=== PATIENT | male | born 1955 ===

== ENCOUNTER 2020-05-31 15:24 | Outpatient (REF) | payer MEDICARE, MEDICAID, SELFPAY ==
[2020-05-31 16:17] LABS: Anion Gap 11 (12-20); Blood Urea Nitrogen 15 mg/dL (9-16); Calcium 8.8 mg/dL (8.4-10.2); Carbon Dioxide 30 mmol/L (22-29); Chloride 100 mmol/L (96-108); Estimated Glomerular Filt Rate > 60; Glucose Random 134 mg/dL (60-115); Potassium 3.9 mmol/l (3.3-5.1); Sodium 137 mmol/L (135-145)
== END 2020-05-31 15:25 | disposition home or self-care (01) ==
LOC: HO.LAB 15:24
PROVIDERS: PCP Internal Medicine; Visit Provider Hospitalist
DX: M51.36 Other intervertebral disc degeneration, lumbar region (principal)
CPT/HCPCS: 80048

== ENCOUNTER 2020-06-19 09:25 | Outpatient (REF) | payer MEDICARE, MEDICAID, SELFPAY ==
[2020-06-19 10:20] LABS: Hematocrit 40.1 % (42-52); Hemoglobin 12.6 g/dl (14.0-18.0); Mean Corpuscular HGB Conc 31.4 g/dl (31.0-36.0); Mean Corpuscular Hemoglobin 26.8 pg (27.0-33.0); Mean Corpuscular Volume 85.1 fL (80-98); Mean Platelet Volume 11.3 fL (9.4-12.4); Platelet Count 205 X10*3/uL (160-400); Red Blood Count 4.71 X10*6/uL (4.60-5.80); Red Cell Distribution Width 12.9 % (11.0-16.0)
[2020-06-19 10:51] LABS: Cholesterol 238 mg/dL; HDL Cholesterol 48 mg/dL; LDL Cholesterol Calculated 158 mg/dl; Triglycerides 163 mg/dL
[2020-06-19 11:12] LABS: TSH reflex Free T4 3.05 mIU/mL (0.32-4.0)
[2020-06-19 12:41] LABS: Creatinine Urine 112.67 mg/dL; Microalbum/Creatinine Ratio Ur 4.4 ug/mg cr
== END 2020-06-19 09:26 | disposition home or self-care (01) ==
LOC: HO.LAB 09:25
PROVIDERS: PCP Internal Medicine; Visit Provider Hospitalist
DX: I10 Essential (primary) hypertension (principal); E11.9 Type 2 diabetes mellitus without complications
CPT/HCPCS: 36415; 80061; 82043; 84443; 85027

== ENCOUNTER 2022-03-29 12:16 | Outpatient (REF) | payer MEDICARE, MEDICAID, SELFPAY ==
--- NOTE | ~2022-03-29 | XR_ITS ---
EXAMINATION: XR SHOULDER, LEFT CLINICAL INFORMATION: Strain of unspecified muscle, fascia, tendon COMPARISON: None TECHNIQUE: 5 views of the left shoulder. FINDINGS: Moderate to severe glenohumeral joint arthritis, marked joint space loss, osteophytes, sclerosis. Moderate acromioclavicular arthritis. No fracture or dislocation. No abnormal soft tissue calcification. No suspicious findings in the visualized lung. XR/XR shoulder LT min 2V IMPRESSION: Moderate to severe glenohumeral joint arthritis. Moderate acromioclavicular arthritis.
== END 2022-03-29 12:17 | disposition home or self-care (01) ==
LOC: HO.XRAY 12:16
PROVIDERS: PCP Hospitalist; Visit Provider Hospitalist
DX: S46.911A Strain of unspecified muscle, fascia and tendon at shoulder and upper arm level, right arm, initial encounter (principal); S46.912A Strain of unspecified muscle, fascia and tendon at shoulder and upper arm level, left arm, initial encounter; X50.3XXA Overexertion from repetitive movements, initial encounter
CPT/HCPCS: 73030

== ENCOUNTER 2022-04-10 09:59 | Outpatient (REF) | payer MEDICARE, MEDICAID, SELFPAY ==
[2022-04-10 11:32] LABS: Hematocrit 36.3 % (42.0-52.0); Hemoglobin 11.5 g/dl (14.0-18.0); Mean Corpuscular HGB Conc 31.7 g/dl (31.0-36.0); Mean Corpuscular Hemoglobin 27.4 pg (27.0-33.0); Mean Corpuscular Volume 86.6 fL (80.0-98.0); Mean Platelet Volume 12.4 fL (9.4-12.4); Platelet Count 197 X10*3/uL (160-400); Red Blood Count 4.19 X10*6/uL (4.60-5.80); Red Cell Distribution Width 13.5 % (11.0-16.0); White Blood Count 5.2 X10*3/uL (4.8-10.8)
[2022-04-10 12:02] LABS: Prostate Specific Antigen Scr 1.21 ng/mL (<0.05-4.0)
[2022-04-10 12:10] LABS: Alanine Aminotransferase 15 U/L (0-40); Albumin Level 3.7 g/dL (3.5-5.0); Alkaline Phosphatase 64 U/L (39-117); Anion Gap 12 (12-20); Aspartate Amino Transferase 20 U/L (5-37); Bilirubin Total 0.2 mg/dL (0.0-1.0); Blood Urea Nitrogen 26 mg/dL (9-16); Carbon Dioxide 30 mmol/L (22-29); Chloride 106 mmol/L (96-108); Cholesterol 147 mg/dL; Estimated Glomerular Filt Rate > 60; Glucose Fasting 77 mg/dL (60-99); HDL Cholesterol 56 mg/dL; LDL Cholesterol Calculated 78 mg/dl; Potassium 4.5 mmol/L (3.3-5.1); Sodium 143 mmol/L (135-145); Total Protein 6.1 g/dL (6.5-8.0); Triglycerides 69 mg/dL
[2022-04-10 15:27] LABS: Iron 56 mcg/dL (45-160); Percent Iron Saturation 14 % (15-50); Total Iron Binding Capacity 406 mcg/dL (228-428); Unsaturated Iron Binding 350 ug/dL
[2022-04-10 16:02] LABS: Folate 8.8 ng/mL (> or = 4.0); Vitamin B12 377 pg/mL (200-900)
== END 2022-04-10 10:00 | disposition home or self-care (01) ==
LOC: HO.WFDLDS 09:59
PROVIDERS: PCP Hospitalist; Visit Provider Hospitalist
DX: Z00.00 Encounter for general adult medical examination without abnormal findings (principal); Z12.5 Encounter for screening for malignant neoplasm of prostate; R39.198 Other difficulties with micturition; D64.9 Anemia, unspecified
CPT/HCPCS: 36415; 80053; 80061; 82607; 82746; 83540; 84153; 84439; 84443; 85027

== ENCOUNTER 2023-06-06 13:03 | Outpatient (AMB) | payer MEDICARE, MEDICAID, SELFPAY ==
--- NOTE | 2023-06-06 13:07 | A.OFFPC_ITS ---
Vital Signs 06/06/23 13:23 06/06/23 14:53 Height 5 ft 1 in Weight 114 lb BMI 21.5 BP 104/58 L 110/70 Blood Pressure Location Rt brachial Lt brachial Position Sitting Sitting Respiration 12 Pulse 71 Pulse Source Pulse Oximeter Temp 98.9 F Temp Source Oral Pulse Oximetry (%) 98 Oxygen Delivery Method Room Air Intake Visit Reasons: f/u chronic conditions, trans of care Intake Note: Patient is here for a transfer of care from with chronic conditions. Yusra hall's last CPE was on 11/26/21. Patient's last glucose was 113 on 05/17/23 and most recent A1C on file was 6.8 on 10/17/21. Patient is accompanied by his niece and his ACTIVE DIRECTORY ARCHITECT at today's visit. Patient's agapito ce reports patient was found unconscious and was given narcan on site and brought to [facility] ER a few times last month in May. Patient had a tox screen completed at the hospital and no drugs or alcohol were found in his system. Patient's niece is concerned for patient's mental status, sleepiness, and speech changes. Slice Cutting Machine Operator Required: Yes Slice Cutting Machine Operator Name: Tg is here at todays visit. Accompanied by: Family/Other Allergies No Known Allergies [No Known Allergies*] Allergy (Verified 06/06/23 13:58) Medication List - Last Reconciled 06/06/23 by Valdemar Jerome CNP aspirin 81 mg PO DAILY baclofen 10 mg PO TID cholecalciferol (vitamin D3) (Vitamin D3) 25 mcg PO DAILY clonazepam (Klonopin) 0.5 mg PO TID PRN fenofibrate 160 mg PO DAILY ferrous sulfate 325 mg PO DAILY gabapentin 300 mg PO TID ibuprofen 800 mg PO TID metformin 500 mg PO DAILY miscellaneous medical supply as directed daily; one lift chair to be use as directed; 12 months omeprazole 20 mg PO DAILY quetiapine 200 mg PO BEDTIME quetiapine ER 400 mg PO BEDTIME sertraline (Zoloft) 100 mg PO BID Tobacco use date assessed: 06/06/23 Fall risk assessment: No Falls in past year Last assessed Fall Risk: 06/06/23 Dental Screening Dental Screen Date: 06/06/23 Did you have a dental visit in the last 12 months?: Yes Did you have a dental problem in the last 6 months where you did not have access to dental care?: No Was dental information given to patient?: Patient has dentist HPI HPI Comments History of Present Illness Details 67-year-old male, accompanied by his agapito ce and ACTIVE DIRECTORY ARCHITECT, presents for transfer of care. His former PCP was JEREMY who is no longer with the practice. His last office visit was March 2022. He has past medical history significant for hypertension, type 2 diabetes, hype rlipidemia, GERD, DJD, iron deficiency anemia, schizophrenia, anxiety, and depression. His niece notes that his health plan no longer cover ACTIVE DIRECTORY ARCHITECT services and his ACTIVE DIRECTORY ARCHITECT has recently been provding services intermittently. His has been leaving with his niece the past 4 days for close monitoring. He has been taking his medications as prescribed in the past 4 days per his niece. According to his niece, the patient was found unconscious and was given narcan on site and brought to [facility] ED on 05/17/2023. On 05/31/23, he developed slurred speech, became unconscious and was brought to [facility] ED again. He was admitted x2 days both times he went to the ED. Patient had a tox screen completed at the hospital and no drugs or alcohol were found in his system per his niece. Patient's niece is concerned for patient's mental status, sleepiness, and speech changes. Review of hospital documentation revealed normal labs, EKG, chest x-ray, and head CT. He is followed by Dr. Sharma, psychiatrist, at [facility]. His last visit was possibly 2 months ago per his ACTIVE DIRECTORY ARCHITECT. He is also followed by a therapist from [facility] monthly and his last telehealth visit was a month ago per his niece. Her niece notes that the patient has been recently experiencing slurred speech, drowsiness, and dizziness. He has also been saying things that doesn't make sense. His symptoms have been ongoing for the past 4 days. His symptoms completely resolved after his two recent hospitalization. [facility] Surgical History No pertinent past surgical history Family History Father No problems noted. Mother Pancreatic cancer Maternal Uncle Pancreatic cancer Other Mental health disorder Social History (Reviewed 06/06/23 @ 13:42 by Kathia Fontana [facility] COUNTY[facility] Housing: Apartment Alcohol intake: never Patient Tobacco Use Status: Never used Tobacco e-Cigarette/Vaping Use: Never Used Second Hand Smoke Exposure: No service: No Current occupational status: disabled Current occupational exposures/hazards: No Cognitive needs: Yes Hearing needs: No Vision needs: Yes (Glasses) Questionnaire PHQ-9 Over the last 2 weeks, how often have you been bothered by any of the following problems? 1. Little interest or pleasure in doing things: nearly every day 2. Feeling down, depressed, or hopeless: nearly every day 3. Trouble falling or staying asleep, or sleeping too much: nearly every day 4. Feeling tired or having little energy: nearly every day 5. Poor appetite or overeating: more than half the days 6. Feeling bad about yourself - or that you are a failure or have let yourself or your family down: nearly every day 7. Trouble concentrating on things, such as reading the newspaper or watching television: nearly every day 8. Moving or speaking so slowly that other people could have noticed. Or the opposite - being so fidgety or restless that you have been moving around a lot more than usual: nearly every day 9. Thoughts that you would be better off or of hurting yourself in some way: not at all Total score: 23 Depression Screening Interpretation: Positive Depression Screening Follow-up: Existing condition and In treatment Depression Screening Done: Yes 54940 - PHQ-9 Billing: Yes Source: Developed by Drs. Sebas Salguero, Claudia Gamboa, Luis Ash and colleagues, with an educational marcello from [employer]. Thrive Questionnaire Date Thrive assessed: 06/06/23 I am a: Patient What is your living situation today?: I have a steady place to live Within the past 12 months, did the food you bought not last and you didn't have the money to get more?: Sometimes True Within the past 12 months, did you worry whether your food would run out before you got money to buy more?: Sometimes True Do you have trouble paying for medicines?: No Do you have trouble getting transportation to medical appointments?: No Do you have trouble paying your heating and electricity bill?: No Do you have trouble taking care of your child, family member or friend?: Yes Do you have trouble with day-to-day activities such as bathing, preparing meals, shopping, managing finances, etc.?: Yes Are you currently unemployed and looking for a job?: No Are you interested in more education?: No Please select the resources that you would like help with: None Currently or been in a relationship where the following occur: no concerns reported AUDIT C Alcohol Use Questionnaire (AUDIT-C) 1. How often do you have a drink containing alcohol?: Never 3. How often do you have six or more drinks on one occasion?: Never Total Score: 0 RAMON-7 AMB Questionnaire RAMON-7 Date RAMON - 7 assessed: 06/06/23 Feeling nervous, anxious, or on edge: 3 = Nearly every day Not being able to stop or control worryin = Nearly every day Worrying too much about different things: 3 = Nearly every day Trouble relaxin = Nearly every day Being so restless that it is hard to sit still: 1 = Several days Becoming easily annoyed or irritable: 0 = Not at all Feeling afraid as if something awful might happen: 3 = Nearly every day Total RAMON-7 score (0-4 normal; 5-9 mild; 10-14 moderate; 15-21 severe): 16 Source: Developed by Drs. Sebas Salguero, Claudia Gamboa, Luis Ash and colleagues, with an educational marcello from [employer]. RAMON-7 Assessment Billing ARMON-7 Assessment Tool: RAMON-7 Assessment 68030 Review of Systems Const Details: Const Denies chills, Denies fatigue, Denies fever(s), Denies headache(s) and Denies weakness ENT Reports dizziness and Denies headache(s) Card Denies chest pain, Denies lightheadedness, Denies dyspnea and Denies other (Palpitations) Resp Denies cough, Denies dyspnea, Denies wheezing and Denies other (shortness of breath) GI Denies abdominal pain, Denies melena, Denies hematochezia, Denies change in bowel habits, Denies dyspepsia and Denies nausea Denies hematuria and Denies dysuria Musc Denies abnormal gait, Denies myalgias, Denies arthralgias, Denies numbness and Denies tingling Skin/Breast Denies rash, Denies unusual bruising and Denies wounds Neuro Denies abnormal gait, Reports dizziness, Denies headache(s), Denies memory loss, Denies numbness, Denies Sensory deficit (Neuro), Denies tingling and Denies weakness Psych Reports anxiety, Reports depression, Denies memory loss Endo Denies cold intolerance, Denies fatigue, Denies heat intolerance, Denies polydipsia and Denies polyuria Aller/Immun Denies wheezing Physical exam (Primary Care) Vital Signs: Last Vital Signs Temp 98.9 F 06/06/23 13:23 Pulse 71 06/06/23 13:23 Resp 12 06/06/23 13:23 BP 110/70 06/06/23 14:53 Pulse Ox 98 06/06/23 13:23 Oxygen Delivery Method Room Air 06/06/23 13:23 BMI result Body Mass Index 21.5 Tobacco/Smoking Status: Tobacco use Status Tobacco use date assessed 06/06/23 06/06/23 13:42 Patient Tobacco Use Status Never used Tobacco 06/06/23 13:07 e-Cigarette/Vaping Use Never Used 06/06/23 13:07 PHQ-9: PHQ-9 Score PHQ-9: Total score 23 06/06/23 14:08 Depression Screening Interpretation: Positive Depression Screening Follow-up: Existing condition and In treatment Thrive Assessment: Date of Thrive Assessment Date Thrive assessed 06/06/23 06/06/23 14:00 Currently or been in a relationship where the following occur: no concerns reported Const Other: General: no acute distress and well developed Nutritional Appearance: well nourished Orientation/consciousness: patient oriented x3 HENMT Head: Yes normocephalic and Yes atraumatic Oropharynx is significantly dry Eyes General: appearance normal, both eyes and all related structures Pupils: Equal, round and reactive pupils present EOM: EOMs intact bilaterally Resp Effort & Inspection: normal respiratory effort Auscultation: clear to auscultation bilaterally Cardio Rate: regular rate Rhythm: regular rhythm Heart sounds: S1 normal heart sound present, S2 normal heart sound present, no gallops, no murmurs and no rubs GI Palpation (GI): No Abdominal aortic bruit present, Soft to palpation, nontender, No hepatosplenomegaly present and No Rebound tenderness present Auscultation: normal bowel sounds General: Yes no CVA tenderness Back/Spine/Pelvis Back: no CVA tenderness Cervical Spine: cervical ROM normal and No Cervical spine tenderness Thoracic/Lumbar Spine: thoraco-lumbar ROM normal, No pain with thoraco-lumbar ROM, No thoracic spinal tenderness and No lumbar spinal tenderness Extrem General: Yes normal to inspection, No edema and No calf tenderness Skin General: warm and dry. Normal skin color. Normal skin turgor Neuro General: patient oriented x3, gait normal and no focal neuro deficit Cranial nerves: Yes Equal, round and reactive pupils present Cognition (Neuro): normal cognition Gait exam (Neuro): Normal gait present Sensory Exam: No Sensory deficit (Neuro) Psych Appearance: grossly normal Affect: normal affect Attitude: cooperative Thought process: Normal thought process present Results AMB Hemoglobin A1c AMB Hemoglobin A1c 6.1 % Last Edit by Kathia Fontana CMA on 06/06/23 14:03 Results Reviewed Results Reviewed: Laboratory Last Values Hgb A1c (Clinic) 6.1 % (4.0-6.0) H 06/06/23 14:01 Assessment and Plan Assessment & Plan (1) Diabetes: Code(s): E11.9 - Type 2 diabetes mellitus without complications Qualifiers: Diabetes mellitus complication status: without complication Diabetes mellitus senior care insulin use: without senior care use Diabetes mellitus type: type 2 Qualified Code(s): E11.9 - Type 2 diabetes mellitus without complications Plan: A1c today 6.1%, within goal of less than 7.0% Continue to take metformin 500 mg daily ADA diet and routine exercise encouraged Will recheck A1c in 3 months Verbalized understanding and agreed with treatment plan. (2) Hypertension: Code(s): I10 - Essential (primary) hypertension Qualifiers: Hypertension type: primary hypertension Qualified Code(s): I10 - Essential (primary) hypertension Plan: Blood pressure is 110/70, within goal of less than 130/80 Continue with current treatment regimen Low-sodium diet encouraged Follow-up in 1 month or return sooner with symptoms or concerns Verbalized understanding and agreed with treatment plan. (3) GERD without esophagitis: Code(s): K21.9 - Gastro-esophageal reflux disease without esophagitis Plan: Stable Continue with current treatment (4) Anxiety and depression: Code(s): F41.9 - Anxiety disorder, unspecified; F32.9 - Major depressive disorder, single episode, unspecified Plan: PHQ-9 and RAMON-7 scores revealed severe depression and anxiety Continue current treatment regimen Routine exercise encouraged Call and schedule an appointment with therapist and psychiatrist Return with worsening or new symptoms Verbalized understanding and agreed with treatment plan. (5) Schizophrenia: Code(s): F20.9 - Schizophrenia, unspecified Plan: As above (6) Slurred speech: Code(s): R47.81 - Slurred speech Plan: Reports slurred speech, drowsiness, and dizziness for the past 4 days Normal physical exam. No focal neuro deficit. However, he dozed off a few times in the exam room when being assessed He is on multiple psychotropic and pain medications with common adverse reactions of drowsiness and dizziness Likely experiencing adverse reactions of current treatment regimen. Dizziness may also be attributed to dehydration. Oropharynx is significantly dry Will discontinue baclofen and gabapentin which he is on for chronic lumbar back pain. Will order Celebrex for pain. Take as prescribed. Warm/cold compresses encouraged Adequate hydration encouraged Advised to call his psychiatrist and schedule an appointment for further evaluation and psychotropic medication management Follow-up in 1 month or return sooner with worsening or new symptoms. May refer to Neurology Verbalized understanding and agreed with treatment plan. (7) Drowsiness: Code(s): R40.0 - Somnolence Plan: As above (8) Dizziness: Code(s): R42 - Dizziness and giddiness Plan: As above Orders: Orders AMB Hemoglobin A1c 06/06/23 Z13.9 - Encounter for screening, unspecified Medications: New celecoxib (Celebrex) 200 mg PO DAILY 30 days 30 caps 3RF Discontinued ibuprofen Discontinued Reason: Doctor's Order 800 mg PO TID 270 tabs 2RF M51.36 - Other intervertebral disc degeneration, lumbar region baclofen Discontinued Reason: Doctor's Order 10 mg PO TID 90 tabs 1RF S46.911A - Strain of unspecified muscle, fascia and tendon at shoulder and upper arm level, right arm, initial encounter, S46.912A - Strain of unspecified muscle, fascia and tendon at shoulder and upper arm level, left arm, initial encounter, X50.3XXA - Overexertion from repetitive movements, initial encounter gabapentin Discontinued Reason: Doctor's Order 300 mg PO TID 90 caps 1RF M51.36 - Other intervertebral disc degeneration, lumbar region Coding Level of Care Code Est Pt Level 5 (86121) Diagnoses Type 2 diabetes mellitus without complication, without long-term current use of insulin E11.9 Diabetes mellitus complication status: without complication Diabetes mellitus senior care insulin use: without senior care use Diabetes mellitus type: type 2 Primary hypertension I10 Hypertension type: primary hypertension GERD without esophagitis K21.9 Anxiety and depression F41.9; F32.9 Schizophrenia F20.9 Slurred speech R47.81 Drowsiness R40.0 Dizziness R42 Additional Codes RAMON-7 Assessment Billing - RAMON-7 Assessment Tool: RAMON-7 Assessment 99354 ([id number])
[2023-06-06 13:23] VITALS: BP 104/58; PULSE 71; RESP 12; TEMP 37.2; O2SAT 98; BMI 21.5
[2023-06-06 14:53] VITALS: BP 110/70
== END 2023-06-06 15:13 | disposition home or self-care (01) ==
PROVIDERS: PCP Nurse Practitioner Family; Visit Provider Nurse Practitioner Family
DX: R47.81 Slurred speech (principal); E11.9 Type 2 diabetes mellitus without complications; F20.9 Schizophrenia, unspecified; I10 Essential (primary) hypertension; K21.9 Gastro-esophageal reflux disease without esophagitis; F41.9 Anxiety disorder, unspecified; F32.9 Major depressive disorder, single episode, unspecified
CPT/HCPCS: 83036; 96127; 99215

== ENCOUNTER 2024-03-02 10:38 | Outpatient (AMB) | payer MEDICARE, MEDICAID, SELFPAY ==
--- NOTE | 2024-03-02 10:41 | MHC.PC.OV ---
Vital Signs 03/02/24 10:48 Height 5 ft 1 in Weight 131 lb 6 oz BMI 24.8 BP 120/54 L Blood Pressure Location Lt brachial Position Sitting Respiration 16 Pulse 64 Pulse Source Pulse Oximeter Temp 97.8 F Temp Source Oral Pulse Oximetry (%) 98 Oxygen Delivery Method Room Air Intake Visit Reasons: annual pe Intake Note: patient here for annual CPE. Manager Production Required: No Accompanied by: Nephew or Niece Allergies No Known Allergies [No Known Allergies*] Allergy (Verified 03/02/24 11:04) Medication List - Last Reconciled 03/02/24 by Valdemar Jerome CNP aspirin 81 mg PO DAILY atorvastatin 10 mg PO BEDTIME 90 days celecoxib (Celebrex) 200 mg PO DAILY 30 days cholecalciferol (vitamin D3) (Vitamin D3) 25 mcg PO DAILY clonazepam (Klonopin) 0.5 mg PO TID PRN fenofibrate 160 mg PO DAILY ferrous sulfate 325 mg PO DAILY metformin 500 mg PO DAILY miscellaneous medical supply as directed daily; one lift chair to be use as directed; 12 months omeprazole 20 mg PO DAILY quetiapine 200 mg PO BEDTIME quetiapine ER 400 mg PO BEDTIME sertraline (Zoloft) 100 mg PO BID Tobacco use date assessed: 03/02/24 Fall risk assessment: No Falls in past year Last assessed Fall Risk: 03/02/24 Dental Screening Dental Screen Date: 03/02/24 Did you have a dental visit in the last 12 months?: No Did you have a dental problem in the last 6 months where you did not have access to dental care?: No Was dental information given to patient?: Yes HPI HPI Comments History of Present Illness Details 67-year-old male, accompanied by his nieces, presents for an extended physical exam He has past medical history significant for hypertension, type 2 diabetes, hyperlipidemia, GERD, DJD, iron deficiency anemia, schizophrenia, anxiety, and depression He admits to taking his medications as prescribed without adverse reactions His last office visit was on 06/23/2023. He did not follow-up as planned in 3 months. He notes that his 2 days after his last office visit He notes that he generally makes healthy dietary choices and sleeps well. He exercises routinely He has been grieving his . Music relaxes him. He reports controlled anxiety and depressive symptoms on current treatment regimen He notes that he has not had heard from the therapist and psychiatrist at [facility] for the past several months. He was seen via telehealth monthly. He has a new phone number. His niece notes that she will call [facility] to update the patient's phone number Last colonoscopy was on 12/07/2019: Polyps Last eye exam was a year ago He has not been evaluated by podiatry He notes that he is vaccinated for pneumonia and shingles Nonsmoker. Does not drink alcohol. No recreational drugs PFSH Surgical History No pertinent past surgical history Family History Father No problems noted. Mother Pancreatic cancer Maternal Uncle Pancreatic cancer Other Mental health disorder Social History Housing: Apartment Alcohol intake: never Patient Tobacco Use Status: Never used Tobacco e-Cigarette/Vaping Use: Never Used Second Hand Smoke Exposure: No service: No Current occupational status: disabled Current occupational exposures/hazards: No Cognitive needs: Yes Hearing needs: No Vision needs: Yes (Glasses) Questionnaire PHQ-9 Over the last 2 weeks, how often have you been bothered by any of the following problems? 1. Little interest or pleasure in doing things: not at all 2. Feeling down, depressed, or hopeless: nearly every day 3. Trouble falling or staying asleep, or sleeping too much: more than half the days 4. Feeling tired or having little energy: several days 5. Poor appetite or overeating: not at all 6. Feeling bad about yourself - or that you are a failure or have let yourself or your family down: not at all 7. Trouble concentrating on things, such as reading the newspaper or watching television: not at all 8. Moving or speaking so slowly that other people could have noticed. Or the opposite - being so fidgety or restless that you have been moving around a lot more than usual: several days 9. Thoughts that you would be better off or of hurting yourself in some way: not at all Total score: 7 Depression Screening Interpretation: Positive Depression Screening Follow-up: Existing condition and In treatment Depression Screening Done: Yes [id number] - PHQ-9 Billing: Yes Source: Developed by Drs. Sebas Salguero, Claudia Gamboa, Luis Ash and colleagues, with an educational marcello from [employer]. Thrive Questionnaire Date Thrive assessed: 03/02/24 I am a: Patient What is your living situation today?: I have a steady place to live Within the past 12 months, did the food you bought not last and you didn't have the money to get more?: Never true Within the past 12 months, did you worry whether your food would run out before you got money to buy more?: Sometimes True Do you have trouble paying for medicines?: No Do you have trouble getting transportation to medical appointments?: No Do you have trouble paying your heating and electricity bill?: No Do you have trouble taking care of your child, family member or friend?: No Do you have trouble with day-to-day activities such as bathing, preparing meals, shopping, managing finances, etc.?: Yes Are you currently unemployed and looking for a job?: No Are you interested in more education?: No Please select the resources that you would like help with: None Currently or been in a relationship where the following occur: No concerns reported THRIVE Score: 1 AUDIT C Alcohol Use Questionnaire (AUDIT-C) 1. How often do you have a drink containing alcohol?: Never Total Score: 0 Score Reviewed/Action Taken: Yes RAMON-7 AMB Questionnaire RAMON-7 Date RAMON - 7 assessed: 03/02/24 Feeling nervous, anxious, or on edge: 3 = Nearly every day Not being able to stop or control worryin = Nearly every day Worrying too much about different things: 3 = Nearly every day Trouble relaxin = Several days Being so restless that it is hard to sit still: 1 = Several days Becoming easily annoyed or irritable: 1 = Several days Feeling afraid as if something awful might happen: 2 = More than half the days Total RAMON-7 score (0-4 normal; 5-9 mild; 10-14 moderate; 15-21 severe): 14 Source: Developed by Drs. Sebas Salguero, Claudia Gamboa, Luis Ash and colleagues, with an educational marcello from [employer]. RAMON-7 Assessment Billing RAMON-7 Assessment Tool: RAMON-7 Assessment 31340 Review of Systems Const Details: Denies chills, Denies fatigue, Denies fever(s), Denies headache(s) and Denies weakness HEENT Denies change in vision, Denies dizziness, Denies headache(s), Denies hearing loss, Denies nasal congestion, Denies sinus pain, Denies sinus pressure and Denies sore throat Card Denies chest pain, Denies lightheadedness, Denies dyspnea and Denies other (palpitations) Resp Denies cough, Denies dyspnea and Denies wheezing GI Denies abdominal pain, Denies melena, Denies hematochezia, Denies change in bowel habits, Denies dyspepsia and Denies nausea Denies hematuria and Denies dysuria Musc Denies abnormal gait, Denies myalgias, Denies arthralgias, Denies numbness and Denies tingling Skin/Breast Denies rash, Denies unusual bruising and Denies wounds Neuro Denies abnormal gait, Denies dizziness, Denies headache(s), Denies memory loss, Denies numbness, Denies Sensory deficit (Neuro), Denies tingling and Denies weakness Psych Denies anxiety, Denies depression and Denies memory loss Endo Denies cold intolerance, Denies fatigue, Denies heat intolerance, Denies polydipsia and Denies polyuria Roger/Lymph Denies easy bleeding and Denies easy bruising Aller/Immun Denies wheezing Physical exam (Primary Care) Vital Signs: Last Vital Signs Temp 97.8 F 03/02/24 10:48 Pulse 64 03/02/24 10:48 Resp 16 03/02/24 10:48 BP 120/54 L 03/02/24 10:48 Pulse Ox 98 03/02/24 10:48 Oxygen Delivery Method Room Air 03/02/24 10:48 BMI result Body Mass Index 24.8 Tobacco/Smoking Status: Tobacco use Status Tobacco use date assessed 03/02/24 03/02/24 10:48 Patient Tobacco Use Status Never used Tobacco 03/02/24 10:42 e-Cigarette/Vaping Use Never Used 03/02/24 10:42 PHQ-9: PHQ-9 Score PHQ-9: Total score 7 03/02/24 11:00 Depression Screening Interpretation: Positive Depression Screening Follow-up: Existing condition and In treatment Thrive Assessment: Date of Thrive Assessment Date Thrive assessed 03/02/24 03/02/24 11:00 Currently or been in a relationship where the following occur: No concerns reported Const Other: General: no acute distress, well developed, alert and awake Nutritional Appearance: well nourished Orientation/consciousness: patient oriented x3 [facility] Head: Yes normocephalic and Yes atraumatic Ears: hearing grossly normal bilaterally and TM's normal bilaterally General nose exam: Normal external nose present and Normal nares present Mouth: Normal oral and palatal mucosa present and moist mucous membranes Teeth and gingiva: dentition normal Throat: Yes oropharynx normal Eyes Pupils: Equal, round and reactive pupils present and Pupil accommodation reflex normal EOM: EOMs intact bilaterally Neck Neck: Yes normal visual inspection, Yes no lymphadenopathy and Yes trachea midline Thyroid: Thyroid normal Carotids: no bruits Lymphatic: no lymphadenopathy noted Chest Chest palpation & inspection: normal inspection of the chest Resp Effort & Inspection: normal respiratory effort Auscultation: clear to auscultation bilaterally Cardio Rate: regular rate Rhythm: regular rhythm Heart sounds: S1 normal heart sound present, S2 normal heart sound present, no gallops, no murmurs and no rubs Bruits: no abdominal aortic bruits and no carotid bruits GI Palpation (GI): No Abdominal aortic bruit present, Soft to palpation, nontender, No hepatosplenomegaly present and No Rebound tenderness present Auscultation: normal bowel sounds General: Yes no CVA tenderness Back/Spine/Pelvis Back: no CVA tenderness Cervical Spine: cervical ROM normal and No Cervical spine tenderness Thoracic/Lumbar Spine: thoraco-lumbar ROM normal, No pain with thoraco-lumbar ROM, No thoracic spinal tenderness and No lumbar spinal tenderness Skin General: warm and dry. Normal skin color. Normal skin turgor Lesions: no lesions Rashes: no rashes Trauma: no lacerations or abrasions Wounds: no wounds Nails: normal Neuro General: patient oriented x3, gait normal and CN's II-XI intact bilaterally Cranial nerves: Yes Equal, round and reactive pupils present Cognition (Neuro): normal cognition Gait exam (Neuro): Normal gait present Motor exam (neuro): 5/5 motor strength present throughout Sensory Exam: No Sensory deficit (Neuro) Deep tendon reflexes (DTR's): Right patellar reflex intensity grade: 2+ and Left patellar reflex intensity grade: 2+ Extrem General: Yes normal to inspection, No edema and No calf tenderness Psych Appearance: grossly normal Affect: normal affect Attitude: cooperative Thought process: Normal thought process present Assessment and Plan Assessment & Plan (1) Normal physical exam: Code(s): Z00.00 - Encounter for general adult medical examination without abnormal findings Plan: No significant physical restrictions or limitations noted Continue current treatment regimen Healthy diet and routine exercise encouraged Advised to get lab work done as soon as possible. Will review results and make changes as needed Referred to Ophthalmology and Podiatry Follow-up in 3 months for hypertension, diabetes, and labs review Return sooner with symptoms or concerns Verbalized understanding and agreed with the treatment plan (2) Hypertension: Code(s): I10 - Essential (primary) hypertension Qualifiers: Hypertension type: primary hypertension Qualified Code(s): I10 - Essential (primary) hypertension (3) Diabetes: Code(s): E11.9 - Type 2 diabetes mellitus without complications Qualifiers: Diabetes mellitus type: type 2 Diabetes mellitus long chain beamer insulin use: without long chain beamer use Diabetes mellitus complication status: without complication Qualified Code(s): E11.9 - Type 2 diabetes mellitus without complications Plan: A1c today is 5.9%, within goal of less than 7.0%. Previous A1c was 6.1% Continue current treatment regimen ADA diet and routine exercise encouraged Follow-up in 3 months Verbalized understanding and agreed with treatment plan (4) Anxiety and depression: Code(s): F41.9 - Anxiety disorder, unspecified; F32.9 - Major depressive disorder, single episode, unspecified Plan: Reports controlled anxiety and depression symptoms on current treatment regimen She has been grieving his who several months ago. Music has been therapeutic He has not been seen by his therapist and psychiatrist for several months PHQ-9 and RAMON-7 scores revealed mild depression and moderate anxiety respectively Continue current treatment regimen Routine exercise encouraged Encouraged to call and schedule an appointment with his therapist and psychiatrist Follow-up with worsening or new symptoms Verbalized understanding and agreed with the treatment plan (5) Schizophrenia: Code(s): F20.9 - Schizophrenia, unspecified Plan: As above (6) Grieving: Code(s): F43.21 - Adjustment disorder with depressed mood Plan: As above (7) Colon cancer screening: Code(s): Z12.11 - Encounter for screening for malignant neoplasm of colon Plan: Last colonoscopy was on 12/07/2019: Polyps Referred to [facility] gastroenterology for a colonoscopy (8) Laboratory tests ordered as part of a complete physical exam (CPE): Code(s): Z00.00 - Encounter for general adult medical examination without abnormal findings Plan: Fasting labs ordered as part of a complete physical exam. Advised to fast for at least 10 hours before getting labs drawn. May drink water Verbalized understanding and agreed with treatment plan. Orders: Orders Complete Blood Count Auto Diff Today Z00.00 - Encounter for general adult medical examination without abnormal findings Comprehensive [place]. Panel Fast Today Z00.00 - Encounter for general adult medical examination without abnormal findings Lipid Panel Today Z00.00 - Encounter for general adult medical examination without abnormal findings UA CC w/rflx Micro + Cult Today Z00.00 - Encounter for general adult medical examination without abnormal findings PSA, Ultra Sensitive Today Z00.00 - Encounter for general adult medical examination without abnormal findings TSH reflex Free T4 Today Z00.00 - Encounter for general adult medical examination without abnormal findings Microalbumin, Random (w Creat) Today Z00.00 - Encounter for general adult medical examination without abnormal findings AMB Hemoglobin A1c Today Z13.9 - Encounter for screening, unspecified Referrals Podiatry Referral E11.9 - Type 2 diabetes mellitus without complications Gastroenterology Referral Z12.11 - Encounter for screening for malignant neoplasm of colon Ophthalmology Referral E11.9 - Type 2 diabetes mellitus without complications Coding Level of Care Code Est Pt Level 4 (12803) Est Pt Prev Care >65y(48716) Diagnoses Normal physical exam Z00.00 Primary hypertension I10 Hypertension type: primary hypertension Type 2 diabetes mellitus without complication, without long-term current use of insulin E11.9 Diabetes mellitus type: type 2 Diabetes mellitus long chain beamer insulin use: without long chain beamer use Diabetes mellitus complication status: without complication Anxiety and depression F41.9; F32.9 Schizophrenia F20.9 Grieving F43.21 Colon cancer screening Z12.11 Laboratory tests ordered as part of a complete physical exam (CPE) Z00.00 Additional Codes RAMON-7 Assessment Billing - RAMON-7 Assessment Tool: RAMON-7 Assessment [id number] ([id number])
[2024-03-02 10:48] VITALS: BP 120/54; PULSE 64; RESP 16; TEMP 36.6; O2SAT 98; BMI 24.8
== END 2024-03-02 11:33 | disposition home or self-care (01) ==
PROVIDERS: PCP Nurse Practitioner Family; Visit Provider Nurse Practitioner Family
DX: Z00.00 Encounter for general adult medical examination without abnormal findings (principal); I10 Essential (primary) hypertension; E11.9 Type 2 diabetes mellitus without complications; F41.9 Anxiety disorder, unspecified; F32.9 Major depressive disorder, single episode, unspecified; F20.9 Schizophrenia, unspecified; F43.21 Adjustment disorder with depressed mood; Z12.11 Encounter for screening for malignant neoplasm of colon; Z13.9 Encounter for screening, unspecified
CPT/HCPCS: 83036; 96127; 99397